=== PATIENT | female | born 1950 | race Caucasian/White ===

== ENCOUNTER 2016-05-08 15:32 | Inpatient (IN) | payer MEDICARE ==
[2016-05-08] VITALS (9 sets, daily range): BP systolic 141–178; BP diastolic 35–76; PULSE 28–36; RESP 14–20; O2SAT 95–99
[~2016-05-08] VITALS: Ht 154.9 cm; Wt 80.9 kg
[~2016-05-08 15:32] MED LIST: ALBU8.5H4 IH; ASPI-973 PO; BENZ30CR TP; CALC500T61 PO; CHOL2000 PO; MULT1TAB34 PO; TRIA16.5 NS
--- NOTE | 2016-05-08 15:53 | ED.REPORT ---
HPI-Chest Pain 40 and Over Date of Service May 08, 2016 ED Provider: MD Gisele This is a 66 year old female with a history of hypertension presenting to the ED from urgent care complaining of shortness of breath that began 1 week ago. Pt was bradycardic at urgent care at a rate of 36. Pt reports diarrhea in the last few days that is now resolved. Denies fever, cough, chest pain, nausea, vomiting, abdominal pain, dizziness, or lightheadedness. Nursing Notes Stated Complaint: SHORTNESS OF BREATH Chief Complaint: Chest Pain Nursing Notes Reviewed: Yes Allergies: Coded Allergies: No Known Allergies (Verified , 04/19/08) Scheduled Aspirin (Aspirin) 81 Mg Tablet 81 MG PO DAILY Benzocaine/Resorcinol (Vaginal Itch Cream) 30 Gm Cream..g. 30 GM TP 2X WEEK Calcium Carbonate (Calcium) 500 Mg Tablet 500 MG PO BID Cholecalciferol (Vitamin D3) (Vitamin D) 2,000 Unit Capsule 2,000 UNIT PO DAILY Multivitamins W-Minerals (One Tablet Daily W/Minerals) 1 Tab Tablet 1 TAB PO DAILY Triamcinolone Acetonide (Nasacort Aq) 16.5 Gm [place] 16.5 GM NS DAILY Scheduled PRN Albuterol HFA (Albuterol HFA) 8.5 Gm Hfa.aer.ad 2 PUFF IH Q4 PRN PRN For Wheezing General Time Seen by MD: 15:51 Chief Complaint Shortness of breath Hx Obtained From: Patient Arrived By: Walk-in Sudden in Onset?: Yes Onset Occurred: Just prior to arrival Symptom Duration: Since onset Pertinent Negative: Pt denies other symptoms Recent Healthcare: Recent doctor visit Similar Sx Previous: No Past Medical History Past Medical History Hx colon cancer 2009 Reports: Hypertension Past Surgical History Reports: Ambulatory Status Independent Review of Systems Constitutional: Denies: Chills, Fever Respiratory: Denies: Non-productive cough, Shortness of breath GI: Denies: Abdominal pain, Nausea, Vomiting Neurologic: Denies: Change LOC, Headache Complete sys rev & neg: except as marked. Physical Exam Initial Vital Signs Vital Signs (First) Date Time Temp Pulse Resp B/P Pulse Ox O2 Delivery O2 Flow Rate FiO2 05/08/16 15:34 36.4 33 20 178/39 99 Initial VS: Reviewed Head / Eyes: Atraumatic, Normocephalic, PERRL ENT: Mucous membranes moist, Conjunctiva normal, No scleral icterus Neck: Supple, Non-tender, Full range of motion Extremities: Vascular intact, Neuro intact, No swelling, No tenderness Skin: Warm, Dry, No cyanosis Neurologic: Alert, Oriented, Nonfocal Psychiatric: Mood/affect normal, Behavior normal, Normal thought content General/Constitutional: Awake, Alert Respiratory / Chest: Breath sounds NL, Breath sounds = bilat, No respiratory distress, No rales, No rhonchi, No wheezing, No stridor, No chest tenderness Cardiovascular: No murmurs Heart Rate / Rhythm: Positive: Bradycardia Abdomen: Soft, Non-tender, McBurney's non-tender, No guarding, No rebound, BS normoactive, No distention, No hernia, No palpable mass Interpretation & Diagnostics Lab Results Interpretation Result Diagram: 05/08/16 1555 05/08/16 1555 Test 05/08/16 15:55 White Blood Count 7.1th/mm3 (3.8-10.1) Red Blood Count 4.07mil/mm3 (3.90-5.20) Hemoglobin 12.4g/dL (12.0-15.6) Hematocrit 37.3% (35.0-46.0) Mean Corpuscular Volume 91.6fL (81-100) Mean Corpuscular Hemoglobin 30.5pg (27.0-35.0) Mean Corpuscular Hemoglobin Concent 33.2% (32.0-37.0) Red Cell Distribution Width 14.1% (12.3-15.4) Platelet Count 221bil/L (150-400) Neutrophils (%) (Auto) 65.4% (40-74) Lymphocytes (%) (Auto) 24.8% (14-46) Monocytes (%) (Auto) 7.0% (4-12) Eosinophils (%) (Auto) 2.1% (0-5) Basophils (%) (Auto) 0.4% (0-3) Sodium Level 141mEq/L (134-144) Potassium Level 4.0mEq/L (3.5-5.2) Chloride Level 103mEq/L (97-108) Carbon Dioxide Level 24mmol/L (18-29) Blood Urea Nitrogen 16mg/dL (8-27) Creatinine 0.97mg/dL (0.57-1.00) Estimat Glomerular Filtration Rate 82mL/min (>59) Glucose Level 96mg/dL (60-99) Calcium Level 9.5mg/dL (8.5-10.1) Magnesium Level 2.3mg/dL (1.6-2.6) Total Bilirubin 0.4mg/dL (0.0-1.2) Aspartate Amino Transf (AST/SGOT) 22U/L (0-50) Alanine Aminotransferase (ALT/SGPT) 32U/L (0-32) Alkaline Phosphatase 56U/L (25-165) Troponin T < 0.010ug/L (0.0-0.011) Total Protein 7.5g/dL (6.4-8.4) Albumin 4.2g/dL (3.4-5.0) ECG Interpretation ECG Interpretation: Bradycardia at a rate of 29, with sinus arrest and junctional escape Time: 15:26 Interpreted by: ED physician X-Ray Chest Interpretation Chest Xray Interpretation: IMPRESSION: Slight appearance of increased streaky right basilar opacity. This could represent atelectasis or developing airspace disease such as pneumonia. Dictated by: Ericka Cid M.D. on 05/08/2016 at 16:46 Approved by: Ericka Cid M.D. on 05/08/2016 at 16:46 Re-Eval/Medical Decision Consultation #1: Referral / Consult Name: Rolly Barajas MD Consulted With: Cardiology Call Returned at: 16:15 Metal Lather: Will see patient, Agrees with eval, Agrees with plan Consultation #2: Referral / Consult Name: Joe Segal MD Consulted With: Hospitalist Call Returned at: 16:47 Metal Lather: Accepts admit Counseled Regarding: Diagnosis, Lab results, Need for follow-up, Need for admission Discharge & Departure Primary Impression: Bradycardia Disposition: ADMITTED TO HOSPITAL Discharge Condition All VS Reviewed: Yes Condition: Stable Referrals: Martinez Mistry MD (PCP) Scribe Attestation Portions of this note were transcribed by Eunice Ngo. I, Dr. Jaquez personally performed the history, physical exam and medical decision-making; I reviewed and confirmed the accuracy of the information in the transcribed note. Signed by: darline Okeefe. 05/08/2016, 16:00. Blaise Jaquez MD May 08, 2016 15:53 EUNICE [facility] May 08, 2016 16:00
[2016-05-08 16:14] LABS: BASOPHILS % (AUTO) 0.4 % (0-3); EOSINOPHILS % (AUTO) 2.1 % (0-5); Mean Corpuscular Hemoglobin 30.5 pg (27.0-35.0); Mean Corpuscular Volume 91.6 fL (81-100); NEUTROPHILS % (AUTO) 65.4 % (40-74); Platelet Count 221 bil/L (150-400)
[2016-05-08 16:31] LABS: TROPONIN T < 0.010 ug/L (0.0-0.011)
[2016-05-08 16:44] LABS: Magnesium 2.3 mg/dL (1.6-2.6)
--- NOTE | 2016-05-08 16:48 | DRSVH ---
PROCEDURE: X-RAY CHEST ONE VIEW, PORTABLE ([id number]) INDICATIONS: CHEST PAIN TECHNIQUE: One view of the chest was acquired. COMPARISON: [facility], CT, CT NECK CHEST ABD PELVIS W CON, 06/01/2015, 13:00. [facility], CR, CHEST 1VW (PORTABLE), 05/06/2008, 19:37. FINDINGS: Surgical changes and devices: None. Lungs and pleura: No pleural effusions or pneumothorax. Slight appearance of increased streaky right basilar opacity. Mediastinum: Mediastinal contours appear normal. Heart size is mildly prominent. Bones and chest wall: No suspicious bony lesions. Overlying soft tissues appear unremarkable. IMPRESSION: Slight appearance of increased streaky right basilar opacity. This could represent atelec tasis or developing airspace disease such as pneumonia. Dictated by: Ericka Cid M.D. on 05/08/2016 at 16:46 Approved by: Ericka Cid M.D. on 05/08/2016 at 16:46
[2016-05-08] MEDS ORDERED: Alum-Mag Hydrox-Simeth 30 mL Suspension PO PRN (17:35)
[2016-05-08] MEDS ORDERED: Ondansetron 2 mg/mL 2 mL Inj IVPUSH PRN (17:35)
[2016-05-08] MEDS ORDERED: hydrALAZINE 20 mg/mL Inj IV PRN (17:45)
[2016-05-08] MEDS ORDERED: Atropine 1 mg/10 mL (Code) Syringe IVPUSH PRN (17:45)
[2016-05-08] MEDS ORDERED: Albuterol 2.5 mg/3 mL Inhalation Solution NEB PRN (17:45)
--- NOTE | 2016-05-08 18:01 | CONS ---
[address] [address] CONSULTATION REPORT PATIENT: MARCIE PARRA : 1950 MR#: [id number] ADMIT: 05/08/2016 JOB ID: [id number] DATE OF SERVICE: 05/08/2016 CHIEF COMPLAINT: Dizziness. HISTORY OF PRESENT ILLNESS: The patient was seen urgently in the clinic. She presented urgently in the emergency department. She presented with dizziness. 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. The dizziness has been going off and on for a month. She does have problems with vertigo. She kept dismissing it as a middle ear problem. It progressed gradually. Today, she tried checking her blood pressure while she was having a dizzy spell. The blood pressure instrument could not measure her pulse and kept saying low. In view of this, she came to the emergency department which she had an EKG. EKG showed 2:1 AV block followed by periods of sinus node block. A cardiology consultation was requested by Dr. Wiliam Ruiz at that point. The patient has no real history of any cardiac disease. This, as mentioned, has been going on for a month. She denies any intercurrent illnesses. No flu-like syndrome. She states she does get chest discomfort off and on. It feels like a pressure. Currently, while she was in the emergency department she states she was feeling some discomfort and heaviness in the chest. It is nonradiating and does not make her nauseous or sweaty. She is otherwise moderately active. She tries to go to the gym regularly. While exercising, she does not remember getting chest discomfort or getting dizzy, but it appears that she might have curtailed her activities to some extent. PAST MEDICAL HISTORY: Mainly significant for colon cancer diagnosed in 2008. Recently, she had a lymph node biopsy. She does not have the results back. REVIEW OF SYSTEMS: Comprehensive review of system was done and is essentially negative. No GI or complaints. No upcoming surgeries. No TIAs or strokes. Her thyroid profile was checked and was normal. FAMILY HISTORY: Noncontributory. PERSONAL HISTORY: Nonsmoker. Denies any alcohol abuse. MEDICATIONS: None at home. ALLERGIES: None. PHYSICAL EXAMINATION: Comfortable lady in no apparent distress. Pulse 36, blood pressure 170/60. Neck is supple. No JVD. Chest clear. Heart sounds S1, S2, regular. No gallops. No murmurs, no edema, 2+ distal pulses. ASSESSMENT AND PLAN: This lady presents with a high-grade AV block. She has no overt cardiac history. At this point, she is hemodynamically stable. I am not inclined to put in a temporary pacemaker. I have discussed her case with Dr. Painter. Given her history of chest discomfort, I will take her to the civil laboratory technician and do an angiogram. I expect it to be normal. If she does not have any coronary artery disease, Dr. Painter will then go ahead and place a permanent pacemaker. All this was discussed with the patient. We did give her the option of stress testing first, but she is comfortable with the idea of proceeding ahead with an angiogram. She will be admitted to our tele unit.
--- NOTE | 2016-05-08 19:46 | PCM.HPMED ---
Subjective Date of Service May 08, 2016 Primary Provider: Admitting Physician: Flip Painter MD Primary Care Physician: Martinez Mistry MD Attending Physician: Flip Painter MD Chief Complaint: SOB HISTORY was OBTAINED FROM PATIENT / MEDITECH NOTES History of present illness 58-year-old female with lightheadedness, shortness of breath especially with exertion, chest pressure intermittently 1 month, 1 week history of 8 pound weight gain with pants fitting less comfortably, mild increased leg edema, took her heart rate today he was noted to be too low to read, she went to [facility] PCP, where HR noted to be 30- 40s, sent to ER. no recent infections albeit endorses myalgia, Chronic sinus drainage intermittent coughing couple of days with some phlegm but resolved with no blood, Recent diarrhea, 2 days, typically associated with fatty and dairy foods Heart rate increases to 40s when lying on her left side during the echo In the ER heart rate 30s, Mobitz type II on EKG, Dr. Rees to perform cardiac catheterization in the morning, Dr. May to place pacemaker when necessary thereafter Review of Systems - none of the following - F/C/sick contact / [place] / n/v/ / bleeding/bruising / leg swelling / change in voiding / yeast infections / rash Epigastric pain with indigestion lately No UTI symptoms FAMILY HX PR SOCIAL HX distant social smoker Scheduled Aspirin (Aspirin) 81 Mg Tablet 81 MG PO DAILY Benzocaine/Resorcinol (Vaginal Itch Cream) 30 Gm Cream..g. 30 GM TP 2X WEEK Calcium Carbonate (Calcium) 500 Mg Tablet 500 MG PO BID Cholecalciferol (Vitamin D3) (Vitamin D) 2,000 Unit Capsule 2,000 UNIT PO DAILY Multivitamins W-Minerals (One Tablet Daily W/Minerals) 1 Tab Tablet 1 TAB PO DAILY Triamcinolone Acetonide (Nasacort Aq) 16.5 Gm [place] 16.5 GM NS DAILY Scheduled PRN Albuterol HFA (Albuterol HFA) 8.5 Gm Hfa.aer.ad 2 PUFF IH Q4 PRN PRN For Wheezing Vaginal estrogen Past Medical History Hx colon cancer 2008 Hypertension Exercise-induced asthma Acid reflux hysterectomy Thyroid nodule biopsy negative, thyroid panel February 2016 negative Allergies Coded Allergies: No Known Allergies (Verified , 04/19/08) PMH Social History Hx Alcohol Use: Yes (wine or beer with dinner.) Hx Substance Use: No Exam Vital Signs Vital Sign - Last Date Time Temp Pulse Resp B/P Pulse Ox O2 Delivery O2 Flow Rate FiO2 05/08/16 18:10 151/35 05/08/16 18:02 31 16 95 Room Air 05/08/16 15:34 36.4 Lab and Diagnostics Labs Exam on admission NAD A and O x 3 mood affect WNL NC/AT no icterus no injected eyes EOMI PERRL /no pharyngeal lesions/ no oral lesions / hearing intact Supple neck Bilateral crackles equal chest rise / no accessory muscle use / speaks in full sentences / no rrw RRR S1 S2 / no mrg / 2+ radial pulses Soft nt nd + BS no hepatosplenomegaly Trace bilateral edema no cyanosis no ecchymosis of lower extremities No rash / no jaundice GARCIA ECG Interpretation: Mobitz type II, right bundle branch block, heart rate 29 X-Ray Chest Interpretation Chest Xray Interpretation: IMPRESSION: Slight appearance of increased streaky right basilar opacity. This could represent atelectasis or developing airspace disease such as pneumonia. UA neg Trop negative 1 Result Diagram: 05/08/16 1555 05/08/16 1555 Assessment & Plan Active issues and reason for admission Chest pressure in the setting of Mobitz type II bradycardia, possible viral URI symptoms --Serial troponin, when necessary atropine, monitor electrolytes, lipid panel, echo --cardiac cath in the am, then pacer thereafter per Dr. Craig Anticipate CHF on echo , BNP/weight elevated, crackles on lung exam -- Diurese Lasix 101 now, good uop Consider R pneumonia - though clinically well appearing and consider viral URI --pending respiratory pcr panel, dc tamiflu if negative findings sick euthyroid Chronic issues known prior to admission, present on admission Hypertension exercise induced asthma colon cancer hx 2008 --- When necessary hydralazine / albuterol Diet cardiac, nothing by mouth at midnight DVT prophylaxis lovenox Code full Disposition Assessment and plan were discussed with patient family. Joe Segal MD May 08, 2016 19:46 05/08/16 1555 Joe Segal MD May 08, 2016 19:46
[2016-05-08] MEDS: Furosemide 10 mg/mL 2 mL Inj IVPUSH ONE ×2 (19:48→20:50)
[2016-05-08] MEDS ORDERED: CHOL200047 PO (19:49)
[2016-05-08] MEDS ORDERED: MULT-620 PO (19:49)
[2016-05-08] MEDS ORDERED: TRIA10.8 NS (19:49)
[2016-05-08] MEDS ORDERED: ALBU8.5H2 INHALATION (19:49)
[2016-05-08] MEDS ORDERED: CALC-952 PO (19:49)
--- NOTE | 2016-05-08 19:50 | NUR ---
Admission note Admission assessment and screening completed. Med-Rec updated. Primary care RN aware.
[2016-05-08] MEDS: Calcium Carbonate (Oyster Shell) 500 mg Tablet PO SCH (20:04)
[2016-05-08 21:19] LABS: APPEARANCE,URINE CLEAR (CLEAR,HAZY); COLOR,URINE YELLOW (YELLOW)
[2016-05-08 21:20] LABS: OCCULT BLOOD,URINE SMALL (NEGATIVE); UROBILINOGEN,URINE NORMAL (NORMAL)
[2016-05-09] VITALS (16 sets, daily range): BP systolic 110–153; BP diastolic 40–81; PULSE 30–85; RESP 16–20; O2SAT 93–98
[2016-05-09] MEDS: Sodium Chloride LOK Flush 10 mL Syringe IVFLUSH SCH ×2 (01:15→08:30)
[2016-05-09] MEDS ORDERED: Furosemide 10 mg/mL 2 mL Inj IVPUSH ONE (06:00)
--- NOTE | 2016-05-09 06:32 | NUR ---
Admission/Tele Pt arrived to [facility] RM 2007 @ 2016 from ED Pt was able to self transfer to scale then to bed. Pt HR in ED in the 30's. Pacer pads on pt and zoll machine outside of the room on floor. Pt asymptomatic with only some reports of dizziness. Pt instructed to use call light for ambulation to BS, pt agreeable and cooperative. Med rec and Admit completed prior to arrival to floor. During the night pt continues HR's in the 20's to 30's. Pt asymptomatic, A&Ox3 and able to be awoken when resting. Pt possibly going to lab courier this am and to receive a pacemaker.
[2016-05-09] MEDS: Pantoprazole 20 mg ER24 Tablet PO SCH (08:06)
[2016-05-09] MEDS: Calcium Carbonate (Oyster Shell) 500 mg Tablet PO SCH ×2 (08:30→19:45)
--- NOTE | 2016-05-09 09:33 | DRSVH ---
[facility] [address] [place] [address] Echocardiogram Report Name: MARCIE PARRA LStudy Date: 05/08/2016 Height: 6 1 in Hospital Exam Location: [facility] Weight: 1 79 lb Gender: Female BSA: 1.8 m2 : 1950 Age: 66 yrs BP: 156/6 1 mmHg Reason For Study: SOB Ordering Physician: Performed By: Luzma Berman Referring Physician: Dr. Marina Greenberg Interpretation Summary The ejection fraction is estimated to be 60-65%. There is no significant valvular heart disease. Procedure: A two-dimensional transthoracic echocardiogram with color flow and Doppler was performed. The study quality was technically adequate. Comparison is made with the echocardiogram of 04-08-08. The heart rate ranged between 34-43 bpm during the study. Left Ventricle: The left ventricle is normal in size, wall thickness, and systolic function without any focal wall motion abnormalities. The ejection fraction is estimated to be 60-65%. Left ventricular wall motion is normal. Assessment of diastolic parameters indicates normal left ventricular diastolic function and normal filling pressures. Right Ventricle: The right ventricle is normal in size and function. Atria: The left atrium is mildly dilated. Right atrial size is normal. The interatrial septum is intact with no evidence for an atrial septal defect. Mitral Valve: The mitral valve is normal in structure and function. There is no mitral regurgitation noted. Aortic Valve: The aortic valve opens well. No aortic regurgitation is present. Tricuspid Valve: The tricuspid valve is normal in structure and function. There is trace tricuspid regurgitation. The right ventricular systolic pressure is estimated at 33 mmHg assuming a right atrial pressure of 3 mm Hg. Pulmonic Valve: The pulmonic valve is not well visualized. Great Vessels: The aortic root is normal size. The dimensions of the ascending aorta are normal. The IVC is of normal diameter and collapses greater than 50% with a sniff. This suggests a low right atrial pressure of 3 mm Hg. Pericardium/ Pleura There is no pericardial effusion. There is no pleural effusion. MMode/2D Measurements & Calculations LVIDd: 4.4 cm LA dimension: 3.4 cm RA long axis Ao root diam LVIDs: 2.5 cm FS: 44.3 % LA A2 area: 22.3 cm RA area Aortic Jxn: 2.3 cm IVSd: 0.72 cm LA A4 area: 24.4 cm Ao Arch Diam (Prox LVPWd: 0.81 cm LA length (vol) : 19.3 cm Trans): 2.7 cm RA vol LA vol: 71.6 ml : 55.0 ml LA vol index RA : 30.5 mm/ RVDd major IVC diam: 1.8 cm : 6.3 cm LV toscano. diameter/BSA LV sys. diameter/BSA RVD1 (basal) RVD2 (mid): 3.1 cm (cm/m^2): 2.4 (cm/m^2): 1.4 Doppler Measurements & Calculations Ao V2 max MV E max eliceo MV E/A: 1.2 TR max eliceo : 156.6 cm/sec : 158.0 cm/sec Med Peak E' Eliceo : 274.4 cm/sec Ao max PG MV A max eliceo TR max PG : 9.8 mmHg : 129.0 cm/sec E/E' med: 14.2 : 30.1 mmHg Ao mean PG MV P1/2t: 48.1 msec Lat Peak E' Eliceo PA V2 max : 4.2 mmHg : 112.9 cm/sec E/E' lat: 11.1 PA mean PG E/e' average: 12.6 PA Accel Time : 0.12 sec MV dec time MV P1/2t max eliceo Ao V2 mean PA V2 mean : 0.16 sec : 94.6 cm/sec : 64.8 cm/sec MVA(P1/2t): 4.6 cm2 Ao V2 VTI: 42.0 cm Electronically signed by: Rolly Barajas on Reading Physician:05/09/2016 09:33 AM
[2016-05-09] MEDS ORDERED: 0.9% Sodium Chloride 1,000 ML IV PRN (10:05)
[2016-05-09] MEDS ORDERED: CeFAZolin Inj 2 GM in IV Premix 1 EACH IV SCH (10:05)
[2016-05-09] MEDS ORDERED: Heparin 5,000 Units/500 mL NS Premix IV ONE ×2 (10:33→11:45)
[2016-05-09] MEDS ORDERED: Heparin 1,000 Units/500 mL NS Premix IV ONE (10:33)
--- NOTE | 2016-05-09 10:36 | PCM.HPANE ---
Patient Data Date of Service: May 09, 2016 Surgeon Admitting Provider:Flip Painter MD Attending Provider:Flip Painter MD Primary Care Physician:Martinez Mistry MD Other Provider: Reason for Visit Severe Bradycardia Ht/WT & BMI Height (Feet): 5 Height (Inches): 1.00 Weight (Kilograms): 80.500 Body Mass Index 33.51 Allergies Coded Allergies: No Known Allergies (Verified , 04/19/08) Past Anesthesia History Anesthesia History: Denies:: Anesthesia Reactions Diabetes History Hx Diabetes?: No MRSA MRSA: No Medications Blood Thinner: Aspirin (baby) Active Scripts Cephalexin 500 Mg [id number] Mg PO BID #14 CAPSULE Ref 0 Prov:Augustus Gagnon MD 05/10/16 Reported Medications Triamcinolone Acetonide (Nasacort)10.8 Ml Spray10.8 Ml NS DAILY 05/08/16 Multivitamin with Minerals (Totalday Multiple)1 Each Tablet.er1 Each PO DAILY Supplement 05/08/16 Cholecalciferol (Vitamin D3) (Vitamin D3)2,000 Unit Capsule2,000 Unit PO DAILY Supplement 05/08/16 Calcium Carbonate/Vitamin D3 (Calcium 500 mg Chewable Tablet)1 Each Tab.chew1 Each PO BID Supplement 05/08/16 Albuterol HFA (Proair HFA)8.5 Gm Hfa.aer.ad2 Puffs INHALATION Q4H PRN For Wheezing #1 INHALER 05/08/16 Aspirin 81 Mg Aplhcf88 Mg PO DAILY Ref 0 06/03/15 Benzocaine/Resorcinol (Vaginal Itch Cream)30 Gm Cream..g.30 Gm TP 2X WEEK 06/04/14 History History of ENT Problems?: Yes HEENT History: Positive for:: Cataracts Denies:: Dysphagia Glaucoma Sinus Problem Hx of Heart Problems?: No Cardiovascular History: Denies:: Chest Pain Congestive Heart Failure Coronary Artery Disease Hypertension Hx of Respiratory Problem?: Yes Respiratory History: Positive for:: Asthma Dyspnea Denies:: COPD Chest Surgery Emphysema Hemoptysis Pneumonia Tuberculosis Hx Neurologic Problems?: No Hx of GI Problems?: Yes Other GI Pertinent History: COLON CA Hx of Problems?: Yes Genitourinary History: Positive for:: Urinary Tract Infection Denies:: HX of Hemodialysis Kidney Stones HX of Peritoneal Dialysis: No Female Hx: Denies:: Endometriosis Pelvic Inflammatory Problems with Breasts? Hx Musculoskeletal Problems?: No Hx of Psycho/Social Problems?: No Hx Surgeries?: Yes (HYSTEROCTOMY, COLON CA ) Hx Any Other Health Problems?: Yes Other History: Positive for:: Cancer (COLON) Hospitalization Denies:: Thyroid Disease History Blood Transfusions: Positive for:: Accept Blood Products? Denies:: Blood Transfusions Hx Diabetes: No Hx Alcohol Use: Yes (wine or beer with dinner.)Hx Substance Use: NoHave You Smoked inLast 12 mo: No Stop/Bang Treated for Sleep Apnea?: No Do You Have a CPAP Machine?: No S-Snoring: Do You Snore Loudly: Yes T-Tired: feel tired, fatigued: No O-Obsered: Observed not breath: No P-Blood Pressure: treated: No B- Body Mass Index > 35 kg/m2: No A- Age over 50: Yes N- Neck Large Circumference: Yes G- Gender Male: No JOAO Total Score: 2 JOAO Risk Assessment: Low Risk, <3 Yes Risk Assessment Category Category 1A: Patient has history of documented sleep apnea, and HAS NOT received any narcotic, sedative or anesthesia administration during this stay. Category 1B: Patient has history of documented sleep apnea, and HAS received any narcotic , sedative or anesthesia administration during this stay Category 2: Patient has SUSPECTED Obstructive Sleep Apnea, and HAS received any narcotic , sedative or anesthesia administration during this stay. Category 3: Patient has SUSPECTED Obstructive Sleep Apnea and HAS NOT received narcotic, sedative or anesthesia administration during this stay. Category 4: Outpatient in Procedural Areas with known sleep apnea or who screen positive for High Risk via the STOP/BANG questionnaire. Exam Exam Vital Signs Vital Signs Date Time Temp Pulse Resp B/P Pulse Ox O2 Delivery O2 Flow Rate FiO2 05/09/16 10:17 30 05/09/16 09:56 30 16 95 Room Air 05/09/16 07:51 36.6 31 20 153/62 93 Room Air 05/09/16 02:59 36.6 32 20 135/58 98 Room Air General Appearance: Alert, Oriented X3, Cooperative, No Acute Distress HEENT/AIRWAY: MP 2 Lungs: Clear to Auscultation, Normal Air Movement Heart: No Murmurs/Rubs/Gallops, Other (regular rate, bardycardic) Meds/Labs/Diagnostics Admission Meds Current Medications Aspirin (Ecotrin) 81 mg DAILY PO Last administered on 05/09/16 08:06; Start at 08:30 Sodium Chloride (Saline Wes Flush) 10 ml WES IVFLUSH Last administered on 08:30; Start 05/09/16 at 00:30 Furosemide (Lasix Inj) 10 mg ONCE ONCE IVPUSH Last administered on 05/08/16 20:50; Start 05/08/16 at 18:55; Stop 05/08/16 at 19:46; Status DC Pantoprazole (Protonix) 20 mg DAILYAC PO Last administered on 05/09/16 08:06; Start 05/09/16 at 07:30 Oseltamivir Phosphate (Tamiflu) 30 mg BID PO Last administered on 05/09/16 08: 06; Start 05/09/16 at 08:30; Stop 05/13/16 at 20:31 Labs Test 05/08/16 15:55 05/08/16 18:00 05/08/16 20:14 05/09/16 01:36 White Blood Count 7.1th/mm3 (3.8-10.1) Red Blood Count 4.07mil/mm3 (3.90-5.20) Hemoglobin 12.4g/dL (12.0-15.6) Hematocrit 37.3% (35.0-46.0) Mean Corpuscular Volume 91.6fL (81-100) Mean Corpuscular Hemoglobin 30.5pg (27.0-35.0) Mean Corpuscular Hemoglobin Concent 33.2% (32.0-37.0) Red Cell Distribution Width 14.1% (12.3-15.4) Platelet Count 221bil/L (150-400) Neutrophils (%) (Auto) 65.4% (40-74) Lymphocytes (%) (Auto) 24.8% (14-46) Monocytes (%) (Auto) 7.0% (4-12) Eosinophils (%) (Auto) 2.1% (0-5) Basophils (%) (Auto) 0.4% (0-3) Magnesium Level 2.3mg/dL (1.6-2.6) Total Bilirubin 0.4mg/dL (0.0-1.2) Aspartate Amino Transf (AST/SGOT) 22U/L (0-50) Alanine Aminotransferase (ALT/SGPT) 32U/L (0-32) Alkaline Phosphatase 56U/L (25-165) Pro-B-Type Natriuretic Peptide 594.5pg/mL (0-301) Total Protein 7.5g/dL (6.4-8.4) Albumin 4.2g/dL (3.4-5.0) Lipase 31U/L (13-60) Thyroid Stimulating Hormone (TSH) 5.570uIU/mL (0.450-4.500) Free Thyroxine 0.99ng/dL (0.82-1.77) Hold [place] Top Tube Received (Received) Urine Color Yellow (YELLOW) Urine Appearance Clear (CLEAR,HAZY) Urine pH 5.0 (5.0-8.0) Urine Specific Mcpherson 1.005 (1.003-1.035) Urine Protein Negativemg/dL (NEG,TRACE) Urine Glucose (UA) Negativemg/dL (NEGATIVE) Urine Ketones Negativemg/dL (NEGATIVE) Urine Occult Blood Small (NEGATIVE) Urine Nitrite Negative (NEGATIVE) Urine Bilirubin Negative (NEGATIVE) Urine Urobilinogen Normalmg/dL (NORMAL) Urine Leukocyte Esterase Negative (NEGATIVE) Urine RBC 0-2/hpf (0-2) Urine WBC 0-5/hpf (0-5) Urine Epithelial Cells None/hpf (NONE-MOD) Urine Crystals None seen (NONE SEEN) Urine Bacteria None/hpf (NONE-FEW) Urine Hyaline Casts None/lpf (NONE) Urine Granular Casts None seen (NONE SEEN) Urine Waxy Casts None seen (NONE SEEN) Urine Red Blood Cell Casts None seen (NONE SEEN) Urine White Blood Cell Casts None seen (NONE SEEN) Urine Mucus None seen (None Seen) Urine Trichomonas None seen (NONE SEEN) Urine Yeast None (NONE SEEN) Urinalysis Comment None Urine Culture Reflexed Not indicated Prothrombin Time 10.7sec (8.1-12.5) Prothromb Time International Ratio 1.00ratio Sodium Level 142mEq/L (134-144) Potassium Level 4.0mEq/L (3.5-5.2) Chloride Level 102mEq/L (97-108) Carbon Dioxide Level 24mmol/L (18-29) Blood Urea Nitrogen 18mg/dL (8-27) Creatinine 0.85mg/dL (0.57-1.00) Estimat Glomerular Filtration Rate 95mL/min (>59) Glucose Level 98mg/dL (60-99) Calcium Level 8.9mg/dL (8.5-10.1) Triglycerides Level 91mg/dL (0-149) Cholesterol Level 191mg/dL (100-199) LDL Cholesterol, Calculated 99.800mg/dL (0-99) VLDL Cholesterol 18.200mg/dL HDL Cholesterol 73mg/dL (>39) Cholesterol/HDL Ratio 2.62 (0.0-4.4) Test 05/09/16 09:54 Troponin T < 0.010ug/L (0.0-0.011) Plan Impression Patient chart reviewed, patient interviewed and anesthestic plan with risks, benefits, and alternatives discussed, and informed consent obtained. NPO Status: appropriate ASA Physical Status: ASA4 Life Threatening (severe bardycardia) Anesthetic Plan: MAC Bene/Risks/Altern/Consents: Yes HP Complete Prior to Induction: Yes Zhou Williamson MD May 09, 2016 10:36
[2016-05-09] MEDS ORDERED: Heparin 1,000 Unit/mL 10 mL Inj ONE (10:52)
[2016-05-09] MEDS ORDERED: 0.9% Sodium Chloride 1,000 ML ONE (11:08)
[2016-05-09] MEDS ORDERED: Propofol 10,000 mCg/mL 20 mL Inj ONE (11:20)
[2016-05-09] MEDS ORDERED: Ondansetron 2 mg/mL 2 mL Inj ONE (11:20)
[2016-05-09] MEDS ORDERED: EPHEDrine/NS 5 mg/mL 5 mL Syringe ONE (11:20)
--- NOTE | 2016-05-09 11:26 | NUR ---
Off floor to Automobile Rental Clerk Pt transported off floor to laborer ammunition assembly at 1100.
[2016-05-09] MEDS ORDERED: 0.9% Sodium Chloride 250 ML ONE (11:45)
[2016-05-09] MEDS ORDERED: Bupivacaine-MPF 0.5% 30 mL Inj ONE (11:45)
[2016-05-09] MEDS ORDERED: CeFAZolin 2 Gm/50 mL D5W Duplex Bag IV ONE (11:49)
--- NOTE | 2016-05-09 12:13 | CS94 ---
[address] [address] DIAGNOSTIC CARDIAC CATHETERIZATION PATIENT: MARCIE PARRA : 1950 MR#: [id number] ADMIT: 05/08/2016 JOB ID: [id number] SERVICE DATE: PROCEDURE: 1. Selective right and left coronary angiography. 2. Left heart catheterization. INDICATION: Heart block and chest pain. PROCEDURAL DETAILS: The reader is referred to the procedure log, as are the coders. Briefly, a 6-Algerian system, right femoral approach, standard Jimy catheters. ANGIOGRAPHIC FINDINGS: 1. Left main short, no significant disease. 2. LAD in its mid segment has an eccentric lesion of about 30% to 40%. Rest of the vessel is free of any critical disease. 3. Circumflex is dominant. It is free of any critical disease. 4. Right coronary artery is a small, diminutive vessel, and it is nondominant. No critical disease is noted. 5. Left heart catheterization revealed an LVEDP of 20. There was no gradient upon pullback. CONCLUSION: In summary, this lady has mild to moderate disease in her left anterior descending. She is advised aggressive risk factor modification. No catheter-based therapy is needed at this point.
[2016-05-09] MEDS: 0.9% Sodium Chloride 1,000 ML IV SCH ×2 (13:37→23:31)
[2016-05-09] MEDS ORDERED: HYDROcodone-APAP 5-325 mg Tablet PO PRN ×2 (13:40→18:20)
--- NOTE | 2016-05-09 14:14 | CONS ---
[address] [address] CONSULTATION REPORT PATIENT: MARCIE PARRA : 1950 MR#: [id number] ADMIT: 05/08/2016 JOB ID: [id number] DATE OF SERVICE: 05/09/2016 ELECTROPHYSIOLOGY CONSULTATION: REQUESTING PHYSICIAN: Rolly Barajas MD. REASON FOR CONSULTATION: AV block. PROBLEM LIST: 1. Mobitz II atrioventricular block (reason for current admission). 2. Structurally normal heart with preserved biventricular function and normal valvular function. 3. Distant history of colon cancer, status post partial colectomy and chemotherapy. 4. Right-sided port. MEDICATIONS: None at home. IDENTIFICATION AND HISTORY OF PRESENT ILLNESS: The patient is a pleasant 66-year-old woman with a structurally normal heart by echocardiography yesterday who is admitted with dyspnea and lightheadedness and fatigue. On admission, she was found to be bradycardic with heart rates in the 20s and 30s. EKG confirmed Mobitz II AV block. She is not on any offending agents. She underwent an echocardiogram that showed a structurally normal heart, as well as a coronary angiogram, which failed to reveal any significant coronary lesions to account for her AV block. She denies any magnolia syncope. She has had some chest discomfort, central, nonradiating and associated with shortness of breath over the past few weeks to months. IMPRESSION AND RECOMMENDATION: The patient is a pleasant 66-year-old woman with a structurally normal heart, no significant coronary artery disease, admitted with Mobitz II atrioventricular block associated with chest discomfort and exertional dyspnea. She had no offending agents or reversible causes identified. I recommended dual-chamber pacemaker implantation. I discussed the risks and benefits with her in detail. Ultimately, she wishes to proceed. PLAN: Dual-chamber pacemaker implantation. Thank you for much for allowing me to participate in the care of this patient. Please call with any questions. TIME SPENT: I spent approximately 40 minutes with the patient coordinating her care and reviewing her chart. Greater than 50% of this time was spent in counseling.
--- NOTE | 2016-05-09 14:20 | PCM.ANEP1 ---
Post Anesthesia Phase 1 PACU Phase 1 Assessment Date of Service: May 09, 2016 Vital Signs Vital Signs Date Time Temp Pulse Resp B/P Pulse Ox O2 Delivery O2 Flow Rate FiO2 05/09/16 14:18 60 16 120/45 94 Room Air 05/09/16 14:15 60 16 125/44 94 Room Air 05/09/16 14:10 60 16 124/49 94 Room Air 05/09/16 10:17 30 05/09/16 09:56 30 16 95 Room Air 05/09/16 07:51 36.6 31 20 153/62 93 Room Air Anesthetic Administered: MAC Level of Alertness: Awake, talking GARCIA's with Equal Strength: Yes Pain: No Nausea or Vomiting: No Oxygen Delivery: Room Air Lungs: Clear to Auscultation, Normal Air Movement Dermatome Level: Full Sensation Zhou Williamson MD May 09, 2016 14:20
--- NOTE | 2016-05-09 14:25 | OP ---
[address] [address] OPERATIVE REPORT PATIENT: MARCIE PARRA : 1950 MR#: [id number] ADMIT: 05/08/2016 JOB ID: [id number] DATE OF SURGERY: 05/09/2016 PREOPERATIVE DIAGNOSIS(ES): Mobitz II AV block. POSTOPERATIVE DIAGNOSIS(ES): Mobitz II AV block. PROCEDURES PERFORMED: 1. Dual-chamber pacemaker implantation. 2. Fluoroscopy. SURGEON: Flip Painter MD, electrophysiology attending. UROLOGIST MD: Hardeep Lisa PA-C IMPLANTED DEVICE: 1. [employer] Accolade MRI pulse generator model L331, serial #[id number]. 2. RA lead [employer] INGEVITY MRI model 7740, 45 cm, serial #[id number]. 3. RV lead [employer] INGEVITY MRI, 52 cm, model 7741, serial #[id number]. ANESTHESIA: Monitored anesthesia care was provided by the anesthesiology service. INDICATION: The patient is a pleasant 66-year-old woman with a structurally normal heart admitted with Mobitz II AV block and no reversible cause. After discussion of the risks and benefits of pacemaker implantation, she opted to proceed. PROCEDURAL DESCRIPTION: After informed consent, the patient was taken to the EP laboratory in a fasting nonsedated state, where she was prepped and draped in the usual sterile fashion. The left infraclavicular region was infiltrated with 40 cc of a 50/50 mixture of bupivacaine and lidocaine. Once adequate anesthesia had been achieved, a 3 cm transverse incision was performed 2 cm below the left clavicle. Dissection was carried down to the pectoralis fascia and a pocket was then fashioned using a combination of electrocautery and blunt dissection. Once adequate anesthesia had been achieved, access to the left axillary vein with a micropuncture needle, twice to deploy two 0.035, 3 mm J guidewires. Over the first of these, a 6-[place] Islander tear-away sheath was advanced. Once the sheath was removed, an active fixation was advanced to the RV outflow tract and ultimately the RV apex. The lead was affixed in position using associated fixation screw. The lead was connected to the external analyzer and demonstrated appropriately sensed R waves, impedance, capture threshold. Lead was checked to 10 V and there was no evidence of diaphragmatic stimulation. Attention was now paid to the right atrial lead. Over the other previously deployed J guidewire, another 6-[place] Islander tear-away sheath was advanced. Once the guidewire was removed, an active fixation lead was advanced to the right atrial appendage. It was affixed in position using associated fixation screw. The lead was connected to the external analyzer and demonstrated appropriately sensed P waves, impedance, capture threshold. The lead was checked to 10 V and there was no evidence of diaphragmatic stimulation. Once the position and redundancy of both leads was confirmed with multiple fluoroscopic views, the leads were anchored to the prepectoralis fascia using their associated anchoring sleeves and two Ethibond sutures. . The leads were to the generator. The generator was placed in the pocket and affixed to the floor of the pocket using 1-0 Ti-Cron suture. The incision was then closed with running layers of absorbable suture. The wound was dressed with skin adhesive and a small dressing. At the end the procedure, the needle, sponge, and instrument counts were correct. COMPLICATIONS: None. ESTIMATED BLOOD LOSS: 10 cc. DEVICE MEASURED DATA: 1. Right atrial lead 8.6 mV, 0.7 V at 0.4 msec, 606 ohms. 2. RV lead 14.6 mV, 0.7 V at 0.4 msec, 740 ohms. FINAL PROGRAM PARAMETERS: DDD 60-130 beats per minute. IMPRESSION: Successful dual-chamber pacemaker implantation. PLAN: 1. Stat portable chest x-ray. 2. PA and lateral chest x-ray in the morning. 3. Device interrogation. 4. IV Ancef through tomorrow. 5. Keflex x7 days. 6. Start with wound check one week. ATTENDING STATEMENT: Flip Painter MD, electrophysiology attending was present for and supervised/performed all aspects of this procedure.
--- NOTE | 2016-05-09 15:06 | DRSVH ---
PROCEDURE: X-RAY CHEST ONE VIEW, PORTABLE ([id number]) INDICATIONS: For new leads placed TECHNIQUE: One view of the chest was acquired. COMPARISON: [facility], CR, XR CHEST 1VW (PORTABLE), 05/08/2016, 16:03. FINDINGS: Surgical changes and devices: Expected positioning of dual chamber cardiac pacemaker. Lungs and pleura: No pleural effusions or pneumothorax. Lungs are clear. Mediastinum: Mediastinal contours appear normal. Heart size is enlarged. Bones and chest wall: No suspicious bony lesions. Overlying soft tissues appear unremarkable. IMPRESSION: No immediate complications status post cardiac pacemaker placement. Dictated by: Jayson Christiansen RRA Interpreted: Ketty Quinones MD on 05/09/2016 at 15:05 Transcribed by: JASSON on 05/09/2016 at 15:05 Approved by: Ketty Quinones MD, PhD on 05/09/2016 at 16:58
--- NOTE | 2016-05-09 16:03 | PCM.ANEP2 ---
Post Anesthesia Evaluation ASA/CMS Post Anesthesia Date of Service: May 09, 2016 VS in Patient's Normal Range?: Yes Resp Stable; Airway Patent?: Yes CV Function & Hydration Stable: Yes Mental Status Recovered?: Yes Pain control Satisfactory?: Yes N/V Control Satisfactory?: Yes Zhou Williamson MD May 09, 2016 16:03
[2016-05-09] MEDS ORDERED: CeFAZolin Inj 1 GM in IV Premix 1 EACH IV SCH (16:30)
--- NOTE | 2016-05-09 16:31 | NUR ---
Pt transferred to PCC room 2007. Pt's VSS, Rt groin site CDI, Lt upper chest dressing CDI. Report and pt handoff given to Lori CHEN.
--- NOTE | 2016-05-09 16:55 | PCM.PNMED ---
Subjective Date of Service May 09, 2016 Subjective 66 yo woman with symptomatic bradycardia. She is now recovering from catheterization and pacemaker placement today. She complains of mild postsurgical left anterior chest pain but no other complaints. No cough or dyspnea or other respiratory symptoms. Exam Vital Signs Vital Sign - Last Date Time Temp Pulse Resp B/P Pulse Ox O2 Delivery O2 Flow Rate FiO2 05/09/16 16:00 60 16 120/41 95 Room Air 05/09/16 07:51 36.6 Intake and Output 05/08/16 05/08/16 05/09/16 Cumulative From/Thru 15:00 23:00 07:00 05/08/16 15:34 - 05/09/16 05:32 Intake Total 520 ml 520 ml Output Total 1350 ml 1350 ml Balance -830 ml -830 ml Intake Oral 520 ml 520 ml Output Urine Total 1350 ml 1350 ml Exam General: Healthy-appearing woman in no acute distress HEENT: sclerae anicteric, oral mucosa moist Neck: no JVD Chest: clear to auscultation, bandage in left anterior chest, tenderness as expected Cardiac: S1S2, no murmur Abdomen: non-tender Extremities: No edema Neuro: A&O, cranial nerves symmetric, motor strength 5/5, coordination normal IVs and Medications Medications Reviewed: Medications were reviewed in detail Lab and Diagnostics Result Diagram: 05/08/16 1555 05/09/16 0136 Additional Diagnostics Coronary catheterization: ANGIOGRAPHIC FINDINGS: 1. Left main short, no significant disease. 2. LAD in its mid segment has an eccentric lesion of about 30% to 40%. Rest of the vessel is free of any critical disease. 3. Circumflex is dominant. It is free of any critical disease. 4. Right coronary artery is a small, diminutive vessel, and it is nondominant. No critical disease is noted. 5. Left heart catheterization revealed an LVEDP of 20. There was no gradient upon pullback. CONCLUSION: In summary, this lady has mild to moderate disease in her left anterior descending. She is advised aggressive risk factor modification. No catheter-based therapy is needed at this point. Rolly Barajas MD 05/09/16 1141 Pacemaker placement: DATE OF SURGERY: IMPLANTED DEVICE: 1. [employer] Accolade MRI pulse generator model L331, serial #[id number]. 2. RA lead [employer] INGEVITY MRI model 7740, 45 cm, serial #[id number]. 3. RV lead [employer] INGEVITY MRI, 52 cm, model 7741, serial #[id number]. FINAL PROGRAM PARAMETERS: DDD 60-130 beats per minute. IMPRESSION: Successful dual-chamber pacemaker implantation. PLAN: 1. Stat portable chest x-ray. 2. PA and lateral chest x-ray in the morning. 3. Device interrogation. 4. IV Ancef through tomorrow. 5. Keflex x7 days. 6. Start with wound check one week. Flip Painter MD 05/09/16 1342 . Assessment & Plan Active problems: Chest pressure in the setting of Mobitz type II bradycardia --Serial troponin, negative -- Status post successful diagnostic catheterization and pacemaker placement -- Continue postoperative care - analgesics, sling, chest x-ray in a.m., continue telemetry, perioperative antibiotic Possible CHF , BNP/weight elevated, crackles on lung exam she noted but have resolved. -- No further treatment for fluid overload indicated Consider R pneumonia - clinically she does not have lower respiratory infection or flu syndrome. --dc empiric tamiflu Thyroid status. TSH minimally elevated at 5.57. Free T4 is in the low rash 0.99. Probably Sick euthyroid. -- Recommend repeat TFTs in convalescent state Chronic issues known prior to admission, present on admission: Hypertension exercise induced asthma colon cancer hx 2008 Disposition: Expects discharge tomorrow afternoon after pacemaker check, chest x -ray, rounding by cardiology service Pain Evaluation: Adequate Pain Control VTE Mechanical Devices: Intermittant Pneumatic CD Time spent 20 minutes Reddy Stephens MD May 09, 2016 16:55
[2016-05-09] MEDS ORDERED: Atropine 1 mg/10 mL (Code) Syringe IVPUSH PRN (18:20)
[2016-05-09] MEDS ORDERED: 0.9% Sodium Chloride 250 ML BOLUS IV PRN (18:20)
[2016-05-09] MEDS ORDERED: Ondansetron 2 mg/mL 2 mL Inj IVPUSH PRN (18:20)
[2016-05-09] MEDS ORDERED: 0.9% Sodium Chloride 400 ML (4 HRS) IV ONE (18:20)
[2016-05-09] MEDS ORDERED: Sodium Chloride LOK Flush 10 mL Syringe IVFLUSH PRN (18:20)
--- NOTE | 2016-05-09 19:42 | NUR ---
Cardiac/Shift notation. Angiogram and Dual chamber pacemaker placed in clinical laboratory scientist today. Pt 100% AV paced at 60. Report from Darrius BASURTO. Right Groin site soft non-tender, no hematoma, no direct observation of left chest incision for pacemaker. Pt states that she feels much better post procedural. Pt educated on use of sling for left arm. Pt c/o of incisional pain in left chest from pacemaker site, administered 975 mg of Tylenol with relief. Pt off bedrest at 1615. Up in bed eating dinner at end of shift.
[2016-05-10 00:47] VITALS: BP 113/48; PULSE 59; RESP 18; O2SAT 93
--- NOTE | 2016-05-10 02:55 | NUR ---
Incisional Pain Pt c/o 5/10 Left shoulder and left chest incisional pain, given norco 1 tab, pain relieved 0/10, Rt groin puncture site with CDI drsg, distal pulses strong, left arm on sling. Pt taking adequate fluids, IVF changed to saline lock. Up to Bathroom independently, vital signs stable
[2016-05-10] MEDS ORDERED: CeFAZolin Inj 1 GM in IV Premix 1 EACH IV ONE (04:00)
[2016-05-10 04:11] VITALS: BP 137/60; PULSE 60; RESP 16; O2SAT 97
[2016-05-10 05:40] VITALS: PULSE 65
[2016-05-10 08:00] VITALS: PULSE 60
[2016-05-10] MEDS: Calcium Carbonate (Oyster Shell) 500 mg Tablet PO SCH (08:11)
[2016-05-10 08:12] VITALS: BP 137/62; PULSE 60; RESP 18; O2SAT 97
[2016-05-10] MEDS: 0.9% Sodium Chloride 1,000 ML IV SCH (08:12)
[2016-05-10] MEDS: Pantoprazole 20 mg ER24 Tablet PO SCH (08:12)
--- NOTE | 2016-05-10 09:18 | NUR ---
Social Work: Initial Assessment D: Per EMR review, pt is a 66 year old female admitted for severe bradycardia. Pt is [facility] Medicare with no LTC insurance or VA benefits. PCP is Martinez Mistry MD. NOK/DPOA is Bobby Dooley, Spouse, . Advanced directives completed and on chart/EMR. Readmit score is low, 0/8. AGRICULTURAL CHEMIST met with pt at bedside. Sw role explained. See initial assessment. Pt lives in [place] with spouse and is I at baseline. Pt uses no DME has never had HH or skilled rehab. Pt continues to drive and has 10 stairs to enter her home. Pt states she has no concerns about ambulation or discharging home. Pt continues to be I during admission. Pt also states she can stay on the main level and does not require stair ambulation if necessary. No sw needs or barriers identified at this time. A: Pt who is I at baseline. P: Anticipate pt to discharge home via POV/Spouse once medically stable; AGRICULTURAL CHEMIST to continue to follow. FABIAN Starr Addendum: 05/10/16 at 0923 by RICHARD GARCIA Amended: Links added.
[2016-05-10 09:20] VITALS: PULSE 60; RESP 16; O2SAT 97
--- NOTE | 2016-05-10 10:25 | PCM.DIMED ---
Discharge Instructions Date of Service May 10, 2016 Dates of Hospitalization May 08, 2016 at 19:16 Discharge Diagnosis Discharge Diagnosis 1. Fatigue and presyncope, resolved. 2. Pacemaker implantation 3. Hypertension. Diet Low fat, Low Sodium Activity Limited until seen by PCP Patient Instructions Cardiology as scheduled in the next week. Augustus Gagnon MD May 10, 2016 10:25
[2016-05-10] MEDS ORDERED: CEPH500C PO (10:26)
[2016-05-10] MEDS ORDERED: fentaNYL-PF 50 mCg/mL 2 mL Inj ONE (11:14)
--- NOTE | 2016-05-10 11:21 | NUR ---
Discharge of patient reviewed instructions with patient and patient's . Pt verbalized understanding. Pt discharged with prescriptions and instructions. IV and Telemetry previously discontinued. Pt left hospital with and daughter to home self care.
--- NOTE | 2016-05-10 13:47 | PCM.DC.MED ---
Discharge Summary Date of Service May 10, 2016 Dates of Hospitalization Date of Hospital Admission May 08, 2016 at 19:16 Date of Discharge: May 10, 2016 Providers: Admitting Physician: Flip Painter MD Primary Care Physician: Martinez Mistry MD Attending Physician: Flip Painter MD Diagnosis at Time of Discharge Diagnosis at Time of Discharge 1. Fatigue and presyncope, resolved. 2. Pacemaker implantation 3. Hypertension. 4. Noncritical coronary artery disease. Consultations , Drs. Barajas and Yadira of Cardiology Procedures XRay, CTs & MRIs Chest x-ray with revealed a right base streaky opacity consistent with probable atelectasis ECG 12 Lead 2-1 AV block, heart rate of [address] segment changes. Invasive Procedures Coronary catheterization: ANGIOGRAPHIC FINDINGS: 1. Left main short, no significant disease. 2. LAD in its mid segment has an eccentric lesion of about 30% to 40%. Rest of the vessel is free of any critical disease. 3. Circumflex is dominant. It is free of any critical disease. 4. Right coronary artery is a small, diminutive vessel, and it is nondominant. No critical disease is noted. 5. Left heart catheterization revealed an LVEDP of 20. There was no gradient upon pullback. CONCLUSION: In summary, this lady has mild to moderate disease in her left anterior descending. She is advised aggressive risk factor modification. No catheter-based therapy is needed at this point. Rolly Barajas MD 05/09/16 1141 Pacemaker placement: DATE OF SURGERY: IMPLANTED DEVICE: 1. [employer] Accolade MRI pulse generator model L331, serial #[id number]. 2. RA lead [employer] INGEVITY MRI model 7740, 45 cm, serial #[id number]. 3. RV lead [employer] INGEVITY MRI, 52 cm, model 7741, serial #[id number]. FINAL PROGRAM PARAMETERS: DDD 60-130 beats per minute. IMPRESSION: Successful dual-chamber pacemaker implantation. Other Diagnostics Coronary catheterization: ANGIOGRAPHIC FINDINGS: 1. Left main short, no significant disease. 2. LAD in its mid segment has an eccentric lesion of about 30% to 40%. Rest of the vessel is free of any critical disease. 3. Circumflex is dominant. It is free of any critical disease. 4. Right coronary artery is a small, diminutive vessel, and it is nondominant. No critical disease is noted. 5. Left heart catheterization revealed an LVEDP of 20. There was no gradient upon pullback. CONCLUSION: In summary, this lady has mild to moderate disease in her left anterior descending. She is advised aggressive risk factor modification. No catheter-based therapy is needed at this point. Rolly Barajas MD 05/09/16 1141 Pacemaker placement: DATE OF SURGERY: IMPLANTED DEVICE: 1. [employer] Accolade MRI pulse generator model L331, serial #[id number]. 2. RA lead [employer] INGEVITY MRI model 7740, 45 cm, serial #[id number]. 3. RV lead [employer] INGEVITY MRI, 52 cm, model 7741, serial #[id number]. FINAL PROGRAM PARAMETERS: DDD 60-130 beats per minute. IMPRESSION: Successful dual-chamber pacemaker implantation. PLAN: 1. Stat portable chest x-ray. 2. PA and lateral chest x-ray in the morning. 3. Device interrogation. 4. IV Ancef through tomorrow. 5. Keflex x7 days. 6. Start with wound check one week. Flip Painter MD 05/09/16 1342 . Brief History This patient presented with vague symptoms of chest pressure. She was found at the time of admission to have a profound bradycardia and a heart rate of about 30. Hospital Course She was admitted and placed on telemetry with a transcutaneous pacemaker for backup. There is a question of possible pneumonia based on x-ray but no clinical support for that. She is found to have high-grade 2-1 AV block consistent with a Mobitz type II. Troponins were negative. She is seen by cardiology and underwent coronary angiography without evidence of high-grade stenosis in coronary arteries. Ultimately she was taken for a pacemaker on the same day for asymptomatic high grade A-V block. In the post procedure. She had no further difficulty. Her month long prodrome of chest pressure, weakness and dyspnea completely resolved with pacemaker implantation. On the day of discharge cardiology felt she was stable for discharge home with close post pacemaker implantation follow-up. Exam Vital Signs (Last) Date Time Temp Pulse Resp B/P Pulse Ox O2 Delivery O2 Flow Rate FiO2 05/10/16 09:20 60 16 97 Room Air 05/10/16 08:12 36.6 137/62 Exam Alert oriented in no acute distress. Lungs are clear normal effort. Heart is regular without murmur gallop or rub. Abdomen soft Exams are free of edema good pedal pulses. Pacemaker site is unremarkable wound is clean. There is no fluctuance or warmth or discharge. Test 05/08/16 15:55 05/08/16 18:00 05/08/16 20:14 05/09/16 01:36 White Blood Count 7.1th/mm3 (3.8-10.1) Red Blood Count 4.07mil/mm3 (3.90-5.20) Hemoglobin 12.4g/dL (12.0-15.6) Hematocrit 37.3% (35.0-46.0) Mean Corpuscular Volume 91.6fL (81-100) Mean Corpuscular Hemoglobin 30.5pg (27.0-35.0) Mean Corpuscular Hemoglobin Concent 33.2% (32.0-37.0) Red Cell Distribution Width 14.1% (12.3-15.4) Platelet Count 221bil/L (150-400) Neutrophils (%) (Auto) 65.4% (40-74) Lymphocytes (%) (Auto) 24.8% (14-46) Monocytes (%) (Auto) 7.0% (4-12) Eosinophils (%) (Auto) 2.1% (0-5) Basophils (%) (Auto) 0.4% (0-3) Magnesium Level 2.3mg/dL (1.6-2.6) Total Bilirubin 0.4mg/dL (0.0-1.2) Aspartate Amino Transf (AST/SGOT) 22U/L (0-50) Alanine Aminotransferase (ALT/SGPT) 32U/L (0-32) Alkaline Phosphatase 56U/L (25-165) Pro-B-Type Natriuretic Peptide 594.5pg/mL (0-301) Total Protein 7.5g/dL (6.4-8.4) Albumin 4.2g/dL (3.4-5.0) Lipase 31U/L (13-60) Thyroid Stimulating Hormone (TSH) 5.570uIU/mL (0.450-4.500) Free Thyroxine 0.99ng/dL (0.82-1.77) Hold [place] Top Tube Received (Received) Urine Color Yellow (YELLOW) Urine Appearance Clear (CLEAR,HAZY) Urine pH 5.0 (5.0-8.0) Urine Specific [place] 1.005 (1.003-1.035) Urine Protein Negativemg/dL (NEG,TRACE) Urine Glucose (UA) Negativemg/dL (NEGATIVE) Urine Ketones Negativemg/dL (NEGATIVE) Urine Occult Blood Small (NEGATIVE) Urine Nitrite Negative (NEGATIVE) Urine Bilirubin Negative (NEGATIVE) Urine Urobilinogen Normalmg/dL (NORMAL) Urine Leukocyte Esterase Negative (NEGATIVE) Urine RBC 0-2/hpf (0-2) Urine WBC 0-5/hpf (0-5) Urine Epithelial Cells None/hpf (NONE-MOD) Urine Crystals None seen (NONE SEEN) Urine Bacteria None/hpf (NONE-FEW) Urine Hyaline Casts None/lpf (NONE) Urine Granular Casts None seen (NONE SEEN) Urine Waxy Casts None seen (NONE SEEN) Urine Red Blood Cell Casts None seen (NONE SEEN) Urine White Blood Cell Casts None seen (NONE SEEN) Urine Mucus None seen (None Seen) Urine Trichomonas None seen (NONE SEEN) Urine Yeast None (NONE SEEN) Urinalysis Comment None Urine Culture Reflexed Not indicated Prothrombin Time 10.7sec (8.1-12.5) Prothromb Time International Ratio 1.00ratio Test 05/09/16 09:54 05/10/16 03:45 Troponin T < 0.010ug/L (0.0-0.011) Sodium Level 142mEq/L (134-144) Potassium Level 4.1mEq/L (3.5-5.2) Chloride Level 106mEq/L (97-108) Carbon Dioxide Level 25mmol/L (18-29) Blood Urea Nitrogen 15mg/dL (8-27) Creatinine 0.90mg/dL (0.57-1.00) Estimat Glomerular Filtration Rate 89mL/min (>59) Glucose Level 92mg/dL (60-99) Calcium Level 8.5mg/dL (8.5-10.1) Triglycerides Level 74mg/dL (0-149) Cholesterol Level 188mg/dL (100-199) LDL Cholesterol, Calculated 102.200mg/dL (0-99) VLDL Cholesterol 14.800mg/dL HDL Cholesterol 71mg/dL (>39) Cholesterol/HDL Ratio 2.65 (0.0-4.4) Discharge Medications Discharge Medications Aspirin (Aspirin) 81 Mg Tablet 81 MG PO DAILY (Reported) Benzocaine/Resorcinol (Vaginal Itch Cream) 30 Gm Cream..g. 30 GM TP 2X WEEK ( Reported) Calcium Carbonate/Vitamin D3 (Calcium 500 mg Chewable Tablet) 1 Each Tab.chew 1 EACH PO BID (Reported) Cephalexin (Cephalexin) 500 Mg Capsule 500 MG PO BID Prescribed by: AUGUSTUS VENTURA MD Cholecalciferol (Vitamin D3) (Vitamin D3) 2,000 Unit Capsule 2,000 UNIT PO DAILY (Reported) Multivitamin with Minerals (Totalday Multiple) 1 Each Tablet.er 1 EACH PO DAILY (Reported) Triamcinolone Acetonide (Nasacort) 10.8 Ml [place] 10.8 ML NS DAILY (Reported) As needed Albuterol HFA (Proair HFA) 8.5 Gm Hfa.aer.ad 2 PUFFS INHALATION Q4H PRN PRN For Wheezing (Reported) Followup Plan Disposition: Home Discharge Diet: Low fat, Low Sodium Discharge Activity: Limited until seen by PCP Patient Instructions Cardiology as scheduled in the next week. Time spent 40 minutes Augustus Ventura MD May 10, 2016 13:47
--- NOTE | 2016-05-10 16:03 | DRSVH ---
PROCEDURE: X-RAY CHEST, TWO VIEWS ([id number]) INDICATIONS: For new lead placement TECHNIQUE: 2 views of the chest were acquired. COMPARISON: [facility], CR, XR CHEST 1VW (PORTABLE), 05/09/2016, 14:12. FINDINGS: Surgical changes and devices: Stable position dual chamber left cardiac pacer. Lungs and pleura: Trace basilar pleural effusions and no pneumothorax. Lungs are clear. Mediastinum: Mediastinal contours are normal. Heart size is enlarged. Bones and chest wall: No suspicious bony abnormalities. Soft tissues appear unremarkable. IMPRESSION: Trace pleural effusions and stable position of left cardiac pacemaker. Dictated by: Jayson Christiansen RRA Interpreted: Ketty Quinones MD on 05/10/2016 at 16:03 Transcribed by: JASSON on 05/10/2016 at 16:03 Approved by: Ketty Quinones MD, PhD on 05/10/2016 at 16:34
== END 2016-05-10 11:15 | disposition home or self-care (01) | DRG 244 ==
LOC: SED 15:32 → PCC 19:16
PROVIDERS: ADMIT Internal Medicine Cardiovascular Disease; ATTEND Urology
PROC: 4A023N7 Measurement of Cardiac Sampling and Pressure, Left Heart, Percutaneous Approach (ICD-10-PCS; principal; 2016-05-09)
PROC: 0JH606Z Insertion of Pacemaker, Dual Chamber into Chest Subcutaneous Tissue and Fascia, Open Approach (ICD-10-PCS; 2016-05-09)
PROC: 02H63JZ Insertion of Pacemaker Lead into Right Atrium, Percutaneous Approach (ICD-10-PCS; 2016-05-09)
PROC: B2111ZZ Fluoroscopy of Multiple Coronary Arteries using Low Osmolar Contrast (ICD-10-PCS; 2016-05-09)
PROC: 02HK3JZ Insertion of Pacemaker Lead into Right Ventricle, Percutaneous Approach (ICD-10-PCS; 2016-05-09)
DX: I44.1 Atrioventricular block, second degree (principal); J45.909 Unspecified asthma, uncomplicated; I10 Essential (primary) hypertension; Z79.82 Long term (current) use of aspirin; Z79.51 Long term (current) use of inhaled steroids; Z85.038 Personal history of other malignant neoplasm of large intestine